=== PATIENT | female | born 1995 | race Caucasian/White ===

== ENCOUNTER 2024-03-30 10:57 | Outpatient (CLI) | payer BC ==
[~2024-03-30] VITALS: Ht 160 cm; Wt 93.6 kg
[2024-03-30] MEDS ORDERED: PRENATAL 19 CH1 EACH PO (11:18)
[2024-03-30 11:45] VITALS: BP 121/69; PULSE 90; TEMP 98
--- NOTE | 2024-03-30 12:18 | NUR ---
PATIENT HERE AT 1110 FOR SROM CHECK. GOWN AND MONITORS ON. PATIENT NOT WEARING A PAD AND REPORTS HAS NOT FILLED A PAD, NO BLEEDING, NO CTXS TO REPORT. PATIENT REPORTS HAS BEEN LEAKING WATERY DISCHARGE SINCE SATURDAY. ASHLEYBY CATEGORY 1 STRIP, NO CTX NOTED ON MONITOR. NITRIZINE TEST PERMORED, NEGATIVE RESULT. UPDATED DR PRATHER WITH RESULTS AND ORDERS TO DISCHARGE TO HOME. PATIENT VERY COMFORTABLE GOING HOME AND AMBULATED OFF UNIT WITH SPOUSE AT 1200.
== END 2024-03-30 12:00 | disposition home or self-care (01) ==
LOC: LDRO 10:57
DX: Z34.93 Encounter for supervision of normal pregnancy, unspecified, third trimester (principal); Z3A.38 38 weeks gestation of pregnancy

== ENCOUNTER 2024-04-03 15:22 | Inpatient (IN) | payer BC ==
[2024-04-03] VITALS (25 sets, daily range): BP systolic 102–139; BP diastolic 51–95; PULSE 75–90; TEMP 98.7
[~2024-04-03] VITALS: Ht 157.5 cm; Wt 95.5 kg
[~2024-04-03 15:22] MED LIST: PRENATAL 19 CH1 EACH PO
--- NOTE | 2024-04-03 15:30 | NUR ---
PT AMBULATORY TO UNIT WITH SPOUSE, PT CHANGED INTO HOSPITAL GOWN AND ORIENTED TO ROOM. THIS RN ATTACHES EFM AND TOCO MONITORS TO PT ABDOMEN, PT POSITIONED COMFORTABLE SEMI FOWLERS IN BED. PT REPORTS FEELING INCREASED POSITIVE MOVEMENT, REPORTS FEELING "GUSH OF FLUID WHEN GETTING INTO THE TRUCK AT 0730 THIS MORNING, SOAKED A PAD THIS MORNING, LITTLE GUSHES THROUGHOUT THE DAY, AND FLUID LOOKS CLEAR AND YELLOW," PT DENIES VAGINAL BLEEDING, AND PT DENIES FEELING CONTRACTIONS "I FEEL A LIGHT TIGHTNESS ACROSS MY UPPER ABDOMEN" BUT REPORTS IT IS IRREGULAR AND NOT PAINFUL. EFM CAT 1, PT VS STABLE, NO DECELS, MODERATE VARIABLITY, ADEQUATE ACCELS WITH SOME PROLONGED, BASELINE 130'S.
--- NOTE | 2024-04-03 15:45 | NUR ---
THIS RN SVE WITH AMNIOTRACE, TEST RESULT NEGATIVE DUE TO NEGATIVE AMNIOTRACE THIS RN SVE WITH ROM + TEST, SVE /-2, AND TEST RESULT NEGATIVE
--- NOTE | 2024-04-03 16:00 | NUR ---
PT SOCIAL AND MOVING FREQUENTLY, UNABLE TO TRACE PT VS DUE TO MATERNAL POSITION AND HABITUS, THIS RN EDUCATING PT TO TRACE BASELINE VS.
[2024-04-03] MEDS ORDERED: LR 1,000 ML IV PRN (16:15)
--- NOTE | 2024-04-03 16:35 | NUR ---
THIS RN GETS REPORT FROM PCR.MELISSA THAT PT REPORTED FEELING "GUSH OF FLUID", XAVI COOMBS AMNIOTRACES FLUID AND SHOWS A POSITIVE SROM AT 1635
[2024-04-03] MEDS ORDERED: LR 1,000 ML IV SCH (17:30)
[2024-04-03] MEDS ORDERED: LR & Oxytocin 500 ML IV SCH ×2 (17:30)
[2024-04-03 18:59] LABS: BASO % 0.2 % (0.0-2.0); EOS # 0.1 K/mm3 (0.0-0.7); EOS % 0.4 % (0.0-4.0); GRAN # 11.7 K/mm3 (1.4-6.5); GRAN % 80.2 % (42.2-75.2); HEMATOCRIT 39.4 % (37.0-47.0); HEMOGLOBIN 13.5 g/dl (12.5-16.0); LYMPH % 13.5 % (20.0-51.0); MEAN CELL VOLUME 87 fl (80.0-100.0); MEAN CORPUSCULAR HEMOGLOBIN 30 pg (27-31); MEAN CORPUSCULAR HGB CONC 34 g/dl (33.0-37.0); MEAN PLATELET VOLUME 10.4 fl (7.4-10.4); MONO # 0.7 K/mm3 (0.1-0.6); MONO % 4.9 % (1.7-9.3); PLATELET COUNT 222 K/mm3 (130-400); RED BLOOD COUNT 4.52 M/mm3 (4.10-5.30); REDCELL DISTRIBUTION WIDTH-CV 12.9 % (11.5-14.5)
--- NOTE | 2024-04-03 21:38 | NUR ---
2119- LESTER PERDOMO AT BEDSIDE EXPLAINING PROCEDURE TO PATIENT. PATIENT SITTING ON EDGE OF BED. PULSE OX ON. DIFFICULTY TRACING HEART RATE DUE TO MATERNAL POSITION. 2131- TEST DOSE ADMINISTERED BY LESTER PERDOMO. 2137- PATIENT REPOSITIONED IN SEMIFOWLERS. PLAN OF CARE EXPLAINED TO PATIENT AND SPOUSE. QUESTIONS INVITED AND ANSWERED.
[2024-04-03] MEDS ORDERED: Naloxone 0.4 MG/ML VIAL IV PRN (21:45)
[2024-04-03] MEDS ORDERED: Ondansetron 4 MG/2 ML VIAL IV PRN (21:45)
[2024-04-03] MEDS ORDERED: diphenhydrAMINE 50 MG/ML 1 ML VIAL IV PRN (21:45)
[2024-04-03] MEDS ORDERED: ePHEDrine 50 MG/10 ML VIAL IV PRN (21:45)
[2024-04-03] MEDS ORDERED: diphenhydrAMINE 25 MG CAP PO PRN (21:45)
--- NOTE | 2024-04-03 22:23 | NUR ---
2223- THIS NURSE AT BEDSIDE ASSESSING PATIENT FOLLOWING CELIS INSERTION. HEART RATE DECELERATION NOTED. PATIENT REPOSITIONED TO LEFT LATERAL. 2224- PATIENT REPOSITIONED IN RIGHT LATERAL. FLUID BOLUS STARTED. 2227- PITOCIN TURNED OFF. 2228- PATIENT REPOSITIONED TO HANDS AND KNEES. HEART RATE RECOVERING TO BASELINE.
[2024-04-04] VITALS (38 sets, daily range): BP systolic 101–150; BP diastolic 45–75; PULSE 75–120; TEMP 98–98.4
--- NOTE | 2024-04-04 06:18 | NUR ---
DR. MCDOWELL AT BEDSIDE. SVE COMPLETE +[address] MCDOWELL PERFORMED. PATIENT IS ABLE TO FEEL MORE PRESSURE WITH CONTRACTIONS AFTER HAVING EPIDURAL TURNED OFF. DR. MCDOWELL REQUESTED WE STARTED PUSHING EFFORTS AGAIN.
--- NOTE | 2024-04-04 08:13 | NUR ---
0640- PT RESUMED PUSHING FOR THE FIRST TIME WITH THIS RN, AFTER PUSHING BREAK. FHT SHOW VARIABLE WITH EACH CX, BABY RECOVERS TO BASE BETWEEN CX. 0700- STARTED TUG-O-WAR PUSHING WITH PT. 07- DR MCDOWELL AT BEDSIDE ASSESSING PUSHING EFFORTS. 08- DR MCDOWELL AT BEDSIDE ASSESSING PROGRESS. 08- DR MCDOWELL REQUESTED PIT TO BE TURNED UP TO GET CX CLOSER TOGETHER. 08- SPONTANEOUS VAGINAL DELIVERY BY DR MCDOWELL. NUCHAL X1. INFANT WAS PLACED ON MOMS CHEST AND STIMULATED. CARE OF INFANT WAS TAKEN OVER BY NURSERY NURSE LUIS. CORD WAS CLAMPED AND CUT BY DAD. 0815- SPONANEOUS DELIVERY OF THE PLACENTA BY DR MCDOWELL. BILATERAL LABIAL SECOND DEGREE TEAR, REPAIRED BY DR MCDOWELL. PITOCIN STARTED PER PROTOCAL. DR MCDOWELL ORDERS TXA. TOTAL QBL 579. MOM WAS REPOSITIONED AFTER REPAIR. BLEEDING MINIMAL, VS WNL.
[2024-04-04] MEDS ORDERED: Tranexamic Acid 1,000 MG in NS 100 ML IV ONE (08:30)
[2024-04-04] MEDS ORDERED: Mag/Al Hydrox/Simeth Susp 30 ML CUP PO PRN (08:45)
[2024-04-04] MEDS ORDERED: Loratadine 10 MG TAB PO PRN (08:45)
[2024-04-04] MEDS ORDERED: Measles/Mumps/Rubella Virus Vaccine Live w Diluent 0.5 ML VIAL SQ SCH (08:45)
[2024-04-04] MEDS ORDERED: Witch Hazel 50% Pads Bulk TUB TP PRN (08:45)
[2024-04-04] MEDS ORDERED: Magnes Hydrox (MOM) 80 MG/ML 30 ML CUP PO PRN (08:45)
[2024-04-04] MEDS ORDERED: Ibuprofen 800 MG TAB PO SCH (08:45)
[2024-04-04] MEDS ORDERED: oxyCODONE 5 MG TAB PO PRN (08:45)
[2024-04-04] MEDS ORDERED: Phenylephrine/Mineral Oil/Petrolatum 57 GM TUBE RC PRN (08:45)
[2024-04-04] MEDS ORDERED: Acetaminophen 500 MG TAB PO PRN (08:45)
[2024-04-04] MEDS ORDERED: Naloxone 0.4 MG/ML VIAL IV PRN (08:45)
--- NOTE | 2024-04-04 15:25 | NUR ---
DR MCDOWELL ON UNIT. PT WAS UNABLE TO URINATE DUE TO SWELLING FROM PROLONGED PUSHING EFFORTS. ASKED DR MCDOWELL IF SHE WANTED HER STRAIGHT CATHED OR FOR A CELIS TO BE PLACED. DR MCDOWELL SAID TO PLACE A CELIS UNTIL 0700 TOMORROW.
[2024-04-04] MEDS ORDERED: Sennosides/Docusate 8.6-50 MG TAB PO SCH (17:00)
[2024-04-04] MEDS ORDERED: traZODone 50 MG TAB PO PRN (21:00)
[2024-04-05 03:00] VITALS: BP 104/51; PULSE 88; TEMP 98.1
[2024-04-05] MEDS ORDERED: IBU800 M1 PO (08:16)
[2024-04-05 09:28] VITALS: BP 111/69; PULSE 96; TEMP 97.5
[2024-04-05 16:09] VITALS: BP 106/47; PULSE 104; TEMP 97.9
[2024-04-05 20:00] VITALS: BP 110/54; PULSE 102; TEMP 98.4
[2024-04-06 08:30] VITALS: BP 108/85; PULSE 96; TEMP 98
== END 2024-04-06 13:35 | disposition home or self-care (01) | DRG 806 ==
LOC: LDRO 15:22 → LDR 16:35 → OB 04-04 12:10
PROVIDERS: Obstetrics & Gynecology; ADMIT Student in an Organized Health Care Education/Training Program
PROC: 10E0XZZ Delivery of Products of Conception, External Approach (ICD-10-PCS; principal; 2024-04-04)
PROC: 0KQM0ZZ Repair Perineum Muscle, Open Approach (ICD-10-PCS; 2024-04-04)
PROC: 0UQMXZZ Repair Vulva, External Approach (ICD-10-PCS; 2024-04-04)
PROC: 3E033VJ Introduction of Other Hormone into Peripheral Vein, Percutaneous Approach (ICD-10-PCS; 2024-04-04)
DX: O69.81X0 Labor and delivery complicated by cord around neck, without compression, not applicable or unspecified (principal); O72.1 Other immediate postpartum hemorrhage; Z37.0 Single live birth; O99.214 Obesity complicating childbirth; Z3A.39 39 weeks gestation of pregnancy; O76 Abnormality in fetal heart rate and rhythm complicating labor and delivery; O70.1 Second degree perineal laceration during delivery
CPT/HCPCS: J7120